=== PATIENT | female | born 1950 | race Caucasian/White ===

== ENCOUNTER 2019-08-29 17:56 | Observation (INO) ==
[2019-08-29 18:40] LABS: Bilirubin,Urine Negative (Negative); Blood,Urine Negative (Negative); Clarity,Urine Clear (Clear); Color,Urine Yellow (Yellow); Glucose,Urine (UA) Normal (Normal); Ketones,Urine Negative (Negative); Leukocyte Esterase,Urine Negative (Negative); Nitrite,Urine Negative (Negative); Protein,Urine Negative (Neg-Trace); Specific Gravity,Urine 1.019 (1.010-1.025); Urobilinogen,Urine Normal (Normal)
[2019-08-29 18:53] LABS: Hematocrit 40.5 % (35.3-44.9); Hemoglobin 13.9 g/dL (11.5-15.4); Mean Corpuscular HGB Conc 34.3 g/dL (31.6-35.5); Mean Corpuscular Hemoglobin 32.8 pg (28.0-33.3); Mean Corpuscular Volume 95.5 fL (83.0-100.0); Platelet Count 216 K/mcL (140-400); Red Blood Count 4.24 M/mcL (3.82-4.97); Red Cell Distribution Width 12.6 % (11.5-14.5); White Blood Count 5.5 K/mcL (4.3-11.1)
[2019-08-29 18:58] LABS: INR 0.9; Prothrombin Time 10.3 Seconds (9.4-12.1)
[2019-08-29 19:28] LABS: BUN/Creatinine Ratio 29 (6-26); Blood Urea Nitrogen 20 mg/dL (8-23); Calcium 9.4 mg/dL (8.6-10.3); Carbon Dioxide 23 mEq/L (23-29); Glucose 187 mg/dL (70-105); Troponin I < 0.03 ng/mL (< 0.04); eGFR For African Americans > 60 (> 60); eGFR For Non-African Americans > 60 (> 60)
[2019-08-29 19:30] LABS: Chloride 103 mEq/L (98-107); Osmolality,Calculated 290 (280-300); Potassium 3.8 mEq/L (3.5-5.1); Sodium 136 mEq/L (136-145)
[2019-08-30 06:20] LABS: INR 0.9; Prothrombin Time 10.6 Seconds (9.4-12.1)
[2019-08-30 06:36] LABS: Alanine Aminotransferase 18 Units/L (7-52); Albumin 3.8 g/dL (3.5-5.7); Albumin/Globulin Ratio 1.6 (1.1-2.2); Alkaline Phosphatase 52 Units/L (34-104); Aspartate Amino Transferase 19 Units/L (13-39); BUN/Creatinine Ratio 33 (6-26); Bilirubin,Total 0.5 mg/dL (0.3-1.0); Blood Urea Nitrogen 17 mg/dL (8-23); Calcium 9.1 mg/dL (8.6-10.3); Carbon Dioxide 26 mEq/L (23-29); Chloride 102 mEq/L (98-107); Chol/HDL Ratio 2.4 (0-4.9); Cholesterol 139 mg/dL (< 200); Globulin 2.4 g/dL (2.4-3.5); Glucose 93 mg/dL (70-105); HDL Cholesterol 59 mg/dL (40-59); LDL Cholesterol,Calculated 61 mg/dL (0-99); Osmolality,Calculated 287 (280-300); Potassium 3.9 mEq/L (3.5-5.1); Sodium 138 mEq/L (136-145); Total Protein 6.2 g/dL (6.4-8.9); Triglycerides 93 mg/dL (< 150); Troponin I < 0.03 ng/mL (< 0.04); eGFR For African Americans > 60 (> 60); eGFR For Non-African Americans > 60 (> 60)
[2019-08-30 07:48] LABS: Estimated Average Glucose 123 mg/dl
[2019-08-30] MEDS ORDERED: amLODIPine 5 MG TABLET PO SCH (09:00)
[2019-08-30] MEDS ORDERED: Aspirin Enteric Coated 81 MG Tablet PO SCH (09:00)
[2019-08-30 12:03] VITALS: BP 154/87
== END 2019-08-30 14:56 | disposition home or self-care (01) ==
LOC: EMEROOARM 17:56 → 3BNU 17:56 → SUATTDRO 20:53 → 3BNU 21:40
PROVIDERS: ADMIT Internal Medicine; ATTEND Internal Medicine